=== PATIENT | female | born 1940 | race American Indian/Alaskan Native ===

== ENCOUNTER 2017-11-26 09:06 | Outpatient (CLI) | payer MEDICARE ==
--- NOTE | 2017-11-26 09:30 | XRay Report ---
XRAY LEFT KNEE 4 THREE VIEWS: 10/26/17 CLINICAL: Left knee pain. 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 No joint effusion. IMPRESSION: Status post total joint replacement with moderate nonspecific soft tissue edema.
== END 2017-11-26 09:07 | disposition home or self-care (01) ==
LOC: SPVIMAG 09:06
PROVIDERS: ATTEND Orthopaedic Surgery Sports Medicine
DX: M85.862 Other specified disorders of bone density and structure, left lower leg (principal); Z96.652 Presence of left artificial knee joint